=== PATIENT | female | born 1990 | race Caucasian/White ===

== ENCOUNTER 2016-09-19 10:29 | Emergency (ER) | payer OTHER ==
[2016-09-19] MEDS ORDERED: CYCLOBENZAPRINE HCL 10 MG TABLET PO ONE (11:04)
[2016-09-19] MEDS ORDERED: IBUPROFEN 800 MG TABLET PO ONE (11:04)
--- NOTE | 2016-09-19 11:05 | ER Document Report ---
HPI - HPI Patient complains to provider of: cough, rib tenderness Onset: Other - Cough 3 weeks, rib pain 4 days Onset/Duration: Persistent Quality of pain: Sharp Pain Level: 4 Context: Patient states she's had a cough with postnasal drip for the past 2-3 weeks. Patient denies any fever. Patient states she has been using [id number] antihistamine medication as well as saline nasal spray without improvement of her nasal congestion symptoms. Patient reports that when she coughs she has left lower rib tenderness and suspects that she may have pulled a muscle. Patient denies any fever. Patient without any shortness of breath Associated Symptoms: Chest pain - Left rib tenderness with coughing and deep inspiration, Nonproductive cough, Rhinnorhea. denies: Fever, Headache, Shortness of breath, Sore throat Exacerbated by: Coughing, Deep breathing Relieved by: Remaining still Similar symptoms previously: No Recently seen / treated by doctor: No - ROS ROS below otherwise negative: Yes Systems Reviewed and Negative: Yes All other systems reviewed and negative - CONSTITUTIONAL Constitutional: DENIES: Fever, Chills - EENT EENT: REPORTS: Nasal Drainage-Clear, Congestion. DENIES: Sore Throat - NEURO Neurology: DENIES: Headache - CARDIOVASCULAR Cardiovascular: REPORTS: Chest pain - With coughing - RESPIRATORY Respiratory: REPORTS: Coughing. DENIES: Trouble Breathing - GASTROINTESTINAL Gastrointestinal: DENIES: Abdominal Pain, Nausea, Patient vomiting, Diarrhea - REPRODUCTIVE Reproductive: DENIES: : - MUSCULOSKELETAL Musculoskeletal: DENIES: Extremity pain, Back Pain, Neck Pain - DERM Skin Color: Normal, [place] Skin Problems: None Past Medical History - General Information source: Patient - Social History Smoking Status: Current Every Day Smoker - Less than one pack per day Frequency of alcohol use: Occasional Drug Abuse: None Occupation: none Lives with: Family Family History: Reviewed & Not Pertinent, Arthritis, CAD, CVA, DM, Hyperlipidemia, Hypertension, Malignancy Patient has suicidal ideation: No Patient has homicidal ideation: No Neurological Medical History: Reports: Hx Migraine - x 8 years ago. Renal/ Medical History: Reports: Hx Ovarian Cysts. 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 - Immunizations Immunizations up to date: Yes Hx Diphtheria, Pertussis, Tetanus Vaccination: Yes Vertical Provider Document - CONSTITUTIONAL Agree With Documented VS: Yes Exam Limitations: No Limitations General Appearance: WD/WN, No Apparent Distress - INFECTION CONTROL TRAVEL OUTSIDE OF THE [place]. IN LAST 30 DAYS: No - HEENT HEENT: Atraumatic, Normocephalic. negative: Pharyngeal Exudate, Pharyngeal Tenderness, Pharyngeal Erythema, Tympanic Membrane Red, Tympanic Membrane Bulging Notes: Clear rhinorrhea - NECK Neck: Normal Inspection, Supple. negative: Lymphadenopathy-Left, Lymphadenopathy-Right - RESPIRATORY Respiratory: No Respiratory Distress. negative: Chest Non-Tender - Left lower anterior rib tenderness with palpation, tenderness increases with deep inspiration, no subcutaneous tissues emphysema, no ecchymosis, Rales, Rhonchi, Wheezing O2 Sat by Pulse Oximetry: 100 - CARDIOVASCULAR Cardiovascular: Regular Rate, Regular Rhythm, No Murmur - GI/ABDOMEN Gastrointestinal: Abdomen Soft, Abdomen Non-Tender, No Organomegaly - BACK Back: Normal Inspection - MUSCULOSKELETAL/EXTREMETIES Musculoskeletal/Extremeties: MAEW, FROM - NEURO Level of Consciousness: Awake, Alert, Appropriate Motor/Sensory: No Motor Deficit - DERM Integumentary: Warm, Dry, No Rash Course - Vital Signs Vital signs: Temp Pulse Resp BP Pulse Ox 99.2 F 103 H 18 129/90 H 100 09/19/16 10:42 09/19/16 10:42 09/19/16 10:42 09/19/16 10:42 09/19/16 10:42 - Diagnostic Test Radiology reviewed: Image reviewed, Reports reviewed Discharge - Discharge Clinical Impression: Bronchitis, Chest wall pain Condition: Stable Disposition: HOME, SELF-CARE Instructions: Chest Wall Pain ([facility]), Anti-Inflammatory Medication ([facility]), Muscle Relaxers ([facility]), Muscle Strain ([facility]), Warm Packs ([facility]) Additional Instructions: Return immediately for any new or worsening symptoms Followup with your primary care provider, call tomorrow to make a followup appointment Continue to use your uomz-ojx-zdzyhre antihistamine and saline nasal spray to help with congestion You may take Sudafed oiak-bdg-pzymbyf as directed to help with ear congestion symptoms Prescriptions: Hydrocodone Bit/Homatropine [Hycodan Syrup 5-1.5 mg/ 5 ml Ud Cup] 5 ml PO ASDIR PRN #60 ml PRN Reason: Naproxen [Naprosyn 250 Nmg Tablet] 1 tab PO BID #14 tablet Referrals: [facility] [Provider Group] - Follow up as needed
[2016-09-19 12:47] VITALS: BP 111/70
== END 2016-09-19 12:46 | disposition home or self-care (01) ==
LOC: ER 10:29
DX: J40 Bronchitis, not specified as acute or chronic (principal); R07.89 Other chest pain; R07.81 Pleurodynia; F17.210 Nicotine dependence, cigarettes, uncomplicated
CPT/HCPCS: 71020; 99283

== ENCOUNTER 2018-09-30 15:09 | Emergency (ER) | payer SELFPAY ==
--- NOTE | 2018-09-30 16:17 | ER Document Report ---
ED General - General Chief Complaint: Vag Bleeding, +preg <12wks Stated Complaint: VAGINAL BLEEDING WHILE Time Seen by Provider: 09/30/18 16:00 Primary Care Provider: [facility] [Provider Group] - [facility]AL [facility] - Follow up as needed TRAVEL OUTSIDE OF THE U.S. IN LAST 30 DAYS: No - HPI Notes: Patient is a 27-year-old female approximately 5 to 6 weeks who presents to the emergency department complaining of spotting for the past 3 days with occasional cramping. Patient states that she is still eating and drinking without difficulty. She is urinating normally and having normal bowel movement s. She has had one in the past. No other concerns or complaints. Denies any headache, fever, URI, sore throat, chest pain, palpitations, syncope, cough, shortness of breath, wheeze, dyspnea, current abdominal pain, nausea/vomiting/diarrhea, urinary retention, dysuria, hematuria, or rash. - Related Data Allergies/Adverse Reactions: morphine [Morphine] Allergy (Verified 09/30/18 15:15) prednisone [Prednisone] Allergy (Verified 09/30/18 15:15) Past Medical History - Social History Smoking Status: Unknown if Ever Smoked Chew tobacco use (# tins/day): No Frequency of alcohol use: None Drug Abuse: None Family History: Reviewed & Not Pertinent, Arthritis, CAD, CVA, DM, H yperlipidemia, Hypertension, Malignancy Patient has suicidal ideation: No Patient has homicidal ideation: No Neurological Medical History: Reports: Hx Migraine - x 8 years ago. Renal/ Medical History: Reports: Hx Ovarian Cysts. 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 - Immunizations Immunizations up to date: Yes Hx Diphtheria, Pertussis, Tetanus Vaccination: Yes Review of Systems - Review of Systems -: Yes All other systems reviewed and negative Physical Exam - Vital signs Vitals: Temp Pulse Resp BP Pulse Ox 98.5 F 90 18 122/85 98 09/30/18 15:16 09/30/18 15:16 09/30/18 15:16 09/30/18 15:16 09/30/18 15:16 - Notes Notes: PHYSICAL EXAMINATION: GENERAL: Well-appearing, well-nourished and in no acute distress. LUNGS: Breath sounds clear to auscultation bilaterally and equal. No wheezes rales or rhonchi. HEART: Regular rate and rhythm without murmurs, rubs, gallops. ABDOMEN: Soft, nontender, nondistended abdomen. No guarding, no rebound. No masses appreciated. Normal bowel sounds present. No CVA tenderness bilaterally. Musculoskeletal: FROM to passive/active. Strength 5+/5. Extremities: No cyanosis, clubbing, or edema b/l. Peripheral pulses 2+. Capillary refill less than 3 seconds. NEUROLOGICAL: Normal speech, normal gait. PSYCH: Normal mood, normal affect. SKIN: Warm, Dry, normal turgor, no rashes or lesions noted. Course - Re-evaluation Re-evalutation: 09/30/18 Patient is an afebrile, well-hydrated, 27-year-old female who presents to the ED with bleeding in early with concern for possible miscarriage. Vitals are acceptable without any significant tachycardia, tachypnea, or hypoxia. PE is otherwise unremarkable. CBC/UA unremarkable for acute pathology. HCG at 26 (very low). TVUS shows no evidence of at this time. Patient is nontoxic-appearing is tolerating p.o. without any difficulties. Rhogam given for O(-) blood. No other labs or imaging warranted at this time based on H&P. Low suspicion/risk for acute appendicitis, bowel obstruction, acute cholecystitis, acute cholangitis, perforated diverticulitis, incarcerated hernia, pancreatitis, perforated ulcer, peritonitis, sepsis, pelvic inflammatory disease, tubo-ovarian abscess, ovarian torsion, or other systemic emergent condition at this time. Patient is aware that her condition can change from initial presentation and she needs to monitor symptoms closely and seek medical attention if any acute changes. Recheck HCG in 2-3 days, may need repeat US in 7-10 days as well. Conservative measures otherwise for symptoms. Recheck with your PCM/OBGYN in 3-5 days. Return to the ED with any worsening/concerning symptoms otherwise as reviewed in discharge. Patient is in agreement. I did review with the patient the probability that this could be a miscarriage situation that is ongoing or has already been passed. Pt seemed to understand right away after letting her know the hormone level due to multiple previous miscarriages. Close f/u recommended as above with recheck of her lab and return precautions reviewed. - Vital Signs Vital signs: Temp Pulse Resp BP Pulse Ox 98.5 F 90 18 122/85 98 09/30/18 15:16 09/30/18 15:16 09/30/18 15:16 09/30/18 15:16 09/30/18 15:16 - Laboratory Result Diagrams: 09/30/18 16:42 Laboratory results interpreted by me: 09/30/18 09/30/18 09/30/18 16:42 16:42 16:42 Seg Neutrophils % 40.4 L Lymphocytes % 46.9 H Beta HCG, Quant 26.49 H Urine Ascorbic Acid 20 H Discharge - Discharge Clinical Impression: Bleeding in early Condition: Stable Disposition: HOME, SELF-CARE Instructions: Bleeding During Early ([facility]) Additional Instructions: He will need to have your hormone rechecked in 2 to 3 days. You may call 1-2 days after the lab has been drawn to find out your result. It is currently at 26 right now but it should be doubling every 2 to 3 days. You may need another ultrasound performed in 7 to 10 days as well. Maintain fluid intake Proper hygienic technique Keep the skin clean Tylenol/ibuprofen as needed F/u with your PCM/OBGYN in 3-5 days for a recheck Return to the ED with any development of MÉNDEZ/fever, trouble with vision, eye redness, worsening pain, urethral discharge, urinary retention, blood in the urine, flank pain, abdominal pain, n/v, Chest Pain, shortness of breath, joint pains, trouble breathing, or any other worsening/concerning symptoms as needed otherwise. Forms: Follow-Up Laboratory Testing [facility] [NO [facility]AL MD] - Follow up as needed [facility] [Provider Group] - Follow up as needed
[2018-09-30 17:18] LABS: APPEARANCE,URINE CLEAR; BILIRUBIN,URINE NEGATIVE (NEGATIVE); COLOR,URINE YELLOW; GLUCOSE, URINE NEGATIVE (NEGATIVE); KETONES,URINE NEGATIVE (NEGATIVE); LEUKOCYTE ESTERASE,URINE NEGATIVE (NEGATIVE); NITRITE,URINE NEGATIVE (NEGATIVE); PROTEIN,URINE NEGATIVE (NEGATIVE); URINE SPECIFIC GRAVITY 1.009; UROBILINOGEN,URINE NEGATIVE mg/dL (<2.0)
[2018-09-30 17:19] LABS: ABSOLUTE BASOPHILS # (AUTO) 0.1 10^3/uL (0.0-0.2); ABSOLUTE EOSINOPHILS # (AUTO) 0.2 10^3/uL (0.0-0.6); ABSOLUTE LYMPHOCYTES (AUTO) 3.5 10^3/uL (0.5-4.7); ABSOLUTE MONOCYTES (AUTO) 0.6 10^3/uL (0.1-1.4); EOSINOPHILS % (AUTO) 3.1 % (0-6); LYMPHOCYTES % (AUTO) 46.9 % (13-45); MEAN CORPUSCULAR HEMOGLOBIN 30.5 pg (27.0-33.4); MEAN CORPUSCULAR HGB CONC 33.3 g/dL (32.0-36.0); MEAN CORPUSCULAR VOLUME 92 fl (80-97); MONOCYTES % (AUTO) 8.6 % (3-13); PLATELET COUNT 319 10^3/uL (150-450); RED BLOOD COUNT 4.92 10^6/uL (3.72-5.28); RED CELL DISTRIBUTION WIDTH 13.2 % (11.5-14.0); SEGMENTED NEUTROPHILS % (AUTO) 40.4 % (42-78); TOTAL CELLS COUNTED % (AUTO) 100 %; WHITE BLOOD COUNT 7.4 10^3/uL (4.0-10.5)
--- NOTE | 2018-09-30 17:39 | RADIOLOGY REPORT (SQ) ---
EXAM DESCRIPTION: U/S OB TRANSVAG W/DOPPLER COMPLETED DATE/TIME: 09/30/2018 5:28 pm REASON FOR STUDY: preg, bleeding COMPARISON: None. TECHNIQUE: Transvaginal static and realtime grayscale images acquired of the pelvis. Additional zaynab cted spectral and color Doppler images recorded. All images stored on PACs. bHCG: Pending CLINICAL DATES: 6 weeks, 5 days LIMITATIONS: None. FINDINGS: FETUS: No candidate intrauterine gestation identified. UTERUS: No masses. No anomalies. CERVICAL LENGTH: 2.8 cm Closed. RIGHT ADNEXA: Normal ovary with normal vascular flow. No adnexal free fluid. No adnexal masses. LEFT ADNEXA: Normal ovary with normal vascular flow. No adnexal free fluid. No adnexal masses. FREE FLUID: None. OTHER: No other significant finding. IMPRESSION: No candidate intrauterine gestation identified. Correlate with serum beta HCG. Early p regnancy of unknown location; recommend ectopic precautions, serial beta HCG and follow-up ultrasound in 7 to 14 days to ensure viability. TECHNICAL DOCUMENTATION: JOB ID: [id number] [email or web address]- All Rights Reserved rev Reading location - IP/workstation name: [email or web address]
[2018-09-30 20:46] VITALS: BP 129/93
== END 2018-09-30 21:00 | disposition home or self-care (01) ==
LOC: ER 15:09
DX: O20.9 Hemorrhage in early pregnancy, unspecified (principal); Z3A.01 Less than 8 weeks gestation of pregnancy; Z88.6 Allergy status to analgesic agent
CPT/HCPCS: 99284; 96372; 86900; 86901; 36415; 86850; 84702; 85025; 81001; 76817; 93976; J2790

== ENCOUNTER 2018-11-20 08:48 | Emergency (ER) | payer MEDICAID ==
--- NOTE | 2018-11-20 09:44 | ER Document Report ---
ED Medical Screen (RME) - General Chief Complaint: OB Problem (<20wks) Stated Complaint: VAGINAL BLEEDING Time Seen by Provider: 11/20/18 09:33 Mode of Arrival: Ambulatory Information source: Patient Notes: This 28-year-old female presents to the emergency department today with complaints that she is started vaginal bleeding this morning. Reports she obtained confirmation for the from the health department yesterday. Reports she is G7, P2. She reports she just had a miscarriage at the early part of September. She reports she is not bleeding that heavily no clots but she is having abdominal cramping. Denies fever denies trauma. I have greeted and performed a rapid initial assessment of this patient. A comprehensive ED assessment and evaluation of the patient, analysis of test results and completion of the medical decision making process will be conducted by additional ED providers. Dictation of this chart was performed using voice recognition software; therefor e, there may be some unintended grammatical errors. TRAVEL OUTSIDE OF THE U.[place]. IN LAST 30 DAYS: No - Related Data Allergies/Adverse Reactions: morphine [Morphine] Allergy (Verified 11/20/18 08:48) prednisone [Prednisone] Allergy (Verified 11/20/18 08:48) Past Medical History - General Last Menstrual Period: 10/01/18 - Social History Chew tobacco use (# tins/day): No Frequency of alcohol use: None Drug Abuse: None Neurological Medical History: Reports: Hx Migraine - x 8 years ago. Renal/ Medical History: Reports: Hx Ovarian Cysts. 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 - Immunizations Immunizations up to date: Yes Hx Diphtheria, Pertussis, Tetanus Vaccination: Yes Physical Exam - Vital signs Vitals: Temp Pulse Resp BP Pulse Ox 97.9 F 73 18 122/68 100 11/20/18 08:51 11/20/18 08:51 11/20/18 08:51 11/20/18 08:51 11/20/18 08:51 Course - Vital Signs Vital signs: Temp Pulse Resp BP Pulse Ox 97.9 F 73 18 122/68 100 11/20/18 08:51 11/20/18 08:51 11/20/18 08:51 11/20/18 08:51 11/20/18 08:51
[2018-11-20 10:01] LABS: ABSOLUTE BASOPHILS # (AUTO) 0.1 10^3/uL (0.0-0.2); ABSOLUTE EOSINOPHILS # (AUTO) 0.2 10^3/uL (0.0-0.6); ABSOLUTE LYMPHOCYTES (AUTO) 2.7 10^3/uL (0.5-4.7); ABSOLUTE MONOCYTES (AUTO) 0.5 10^3/uL (0.1-1.4); ABSOLUTE NEUT (AUTO) 4.2 10^3/uL (1.7-8.2); BASOPHILS % (AUTO) 0.8 % (0-2); EOSINOPHILS % (AUTO) 2.4 % (0-6); HEMATOCRIT 42.3 % (36.0-47.0); MEAN CORPUSCULAR HEMOGLOBIN 30.7 pg (27.0-33.4); MEAN CORPUSCULAR HGB CONC 33.1 g/dL (32.0-36.0); MEAN CORPUSCULAR VOLUME 93 fl (80-97); MONOCYTES % (AUTO) 6.1 % (3-13); PLATELET COUNT 279 10^3/uL (150-450); RED BLOOD COUNT 4.56 10^6/uL (3.72-5.28); RED CELL DISTRIBUTION WIDTH 12.9 % (11.5-14.0); SEGMENTED NEUTROPHILS % (AUTO) 55.7 % (42-78); TOTAL CELLS COUNTED % (AUTO) 100 %; WHITE BLOOD COUNT 7.6 10^3/uL (4.0-10.5)
[2018-11-20 10:27] LABS: ALANINE AMINOTRANSFERASE 20 U/L (9-52); ALBUMIN 4.2 g/dL (3.5-5.0); ALKALINE PHOSPHATASE 46 U/L (38-126); ANION GAP 7 (5-19); ASPARTATE AMINO TRANSFERASE 18 U/L (14-36); BILIRUBIN,DIRECT 0.2 mg/dL (0.0-0.4); BILIRUBIN,TOTAL 0.4 mg/dL (0.2-1.3); BLOOD UREA NITROGEN 7 mg/dL (7-20); CARBON DIOXIDE 28 mmol/L (22-30); CHLORIDE 106 mmol/L (98-107); GLUCOSE 120 mg/dL (75-110); SODIUM 141.3 mmol/L (137-145)
[2018-11-20 10:45] LABS: APPEARANCE,URINE CLEAR; BILIRUBIN,URINE NEGATIVE (NEGATIVE); COLOR,URINE STRAW; GLUCOSE, URINE NEGATIVE (NEGATIVE); KETONES,URINE NEGATIVE (NEGATIVE); LEUKOCYTE ESTERASE,URINE NEGATIVE (NEGATIVE); NITRITE,URINE NEGATIVE (NEGATIVE); PROTEIN,URINE NEGATIVE (NEGATIVE); URINE SPECIFIC GRAVITY 1.002; UROBILINOGEN,URINE NEGATIVE mg/dL (<2.0)
--- NOTE | 2018-11-20 10:49 | ER Document Report ---
ED GI/ - General Chief Complaint: OB Problem (<20wks) Stated Complaint: VAGINAL BLEEDING Time Seen by Provider: 11/20/18 09:33 Primary Care Provider: EUGENIO SANCHEZ MD [ACTIVE STAFF] - Follow up as needed Mode of Arrival: Ambulatory Information source: Patient Notes: Patient is a 28-year-old G7, P2 female presented to the emergency department with chief complaint of vaginal bleeding during . Patient reports that she had a miscarriage on 10/01/2018. She states that her bleeding had resolved and then she started having symptoms of such as breast tenderness and nausea. She states she took another test which was positive at home. She reports this follow-up morning she woke up with vaginal bleeding, has not passed any clots. She does report she is Rh-. She has not had any nausea, vomiting or diarrhea. She reports mild lower abdominal cramping. She reports the bleeding is very mild only soaking through one pad this morning and as of now it is almost 11 AM. She denies any past medical history. TRAVEL OUTSIDE OF THE [place] IN LAST 30 DAYS: No - Related Data Allergies/Adverse Reactions: morphine [Morphine] Allergy (Verified 11/20/18 08:48) prednisone [Prednisone] Allergy (Verified 11/20/18 08:48) Past Medical History - General Information source: Patient Last Menstrual Period: 10/01/18 - Social History Smoking Status: Never Smoker Chew tobacco use (# tins/day): No Frequency of alcohol use: None Drug Abuse: None Family History: Reviewed & Not Pertinent, Arthritis, CAD, CVA, DM, Hyperlipidemia, Hypertension, Malignancy Patient has suicidal ideation: No Patient has homicidal ideation: No Neurological Medical History: Reports: Hx Migraine - x 8 years ago. Renal/ Medical History: Reports: Hx Ovarian Cysts. 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 - Immunizations Immunizations up to date: Yes Hx Diphtheria, Pertussis, Tetanus Vaccination: Yes Review of Systems - Review of Systems Constitutional: No symptoms reported EENT: No symptoms reported Cardiovascular: No symptoms reported Respiratory: No symptoms reported Gastrointestinal: No symptoms reported Genitourinary: No symptoms reported Female Genitourinary: See HPI Musculoskeletal: No symptoms reported Skin: No symptoms reported Hematologic/Lymphatic: No symptoms reported Neurological/Psychological: No symptoms reported Physical Exam - Vital signs Vitals: Temp Pulse Resp BP Pulse Ox 97.9 F 73 18 122/68 100 11/20/18 08:51 11/20/18 08:51 11/20/18 08:51 11/20/18 08:51 11/20/18 08:51 - Notes Notes: PHYSICAL EXAMINATION: GENERAL: Well-appearing, well-nourished and in no acute distress. HEAD: Atraumatic, normocephalic. EYES: Pupils equal round and reactive to light, extraocular movements intact, conjunctiva are normal. ENT: Nares patent, oropharynx clear without exudates. Moist mucous membranes. NECK: Normal range of motion, supple without lymphadenopathy LUNGS: Breath sounds clear to auscultation bilaterally and equal. No wheezes rales or rhonchi. HEART: Regular rate and rhythm without murmurs ABDOMEN: Soft, nontender, nondistended abdomen. No guarding, no rebound. No masses appreciated. Female : deferred Musculoskeletal: Normal range of motion, no pitting or edema. No cyanosis. NEUROLOGICAL: Cranial nerves grossly intact. Normal speech, normal gait. Normal sensory, motor exams PSYCH: Normal mood, normal affect. SKIN: Warm, Dry, normal turgor, no rashes or lesions noted. Course - Re-evaluation Re-evalutation: Laboratory 11/20/18 11/20/18 11/20/18 09:52 09:52 09:52 WBC 7.6 RBC 4.56 Hgb 14.0 Hct 42.3 MCV 93 MCH 30.7 MCHC 33.1 RDW 12.9 Plt Count 279 Seg Neutrophils % 55.7 Lymphocytes % 35.0 Monocytes % 6.1 Eosinophils % 2.4 Basophils % 0.8 Absolute Neutrophils 4.2 Absolute Lymphocytes 2.7 Absolute Monocytes 0.5 Absolute Eosinophils 0.2 Absolute Basophils 0.1 Sodium 141.3 Potassium 4.0 Chloride 106 Carbon Dioxide 28 Anion Gap 7 BUN 7 Creatinine 0.52 Est GFR ( Amer) > 60 Est GFR (Non-Af Amer) > 60 Glucose 120 H Calcium 9.0 Total Bilirubin 0.4 Direct Bilirubin 0.2 Neonat Total Bilirubin Not Reportable Neonat Direct Bilirubin Not Reportable Neonat Indirect Bili Not Reportable AST 18 ALT 20 Alkaline Phosphatase 46 Total Protein 7.0 Albumin 4.2 Beta HCG, Quant 285.12 H Total Beta HCG POSITIVE Urine Color Urine Appearance Urine pH Ur Specific [place] Urine Protein Urine Glucose (UA) Urine Ketones Urine Blood Urine Nitrite Urine Bilirubin Urine Urobilinogen Ur Leukocyte Esterase Urine WBC (Auto) Urine RBC (Auto) Urine Bacteria (Auto) Squamous Epi Cells Auto Urine Ascorbic Acid Blood Type O NEGATIVE Antibody Screen POSITIVE Antibody Identification RHOGAM INDUCED ANTI-D Rhogam Indicated RHOGAM REQUESTED 11/20/18 10:30 WBC RBC Hgb Hct MCV MCH MCHC RDW Plt Count Seg Neutrophils % Lymphocytes % Monocytes % Eosinophils % Basophils % Absolute Neutrophils Absolute Lymphocytes Absolute Monocytes Absolute Eosinophils Absolute Basophils Sodium Potassium Chloride Carbon Dioxide Anion Gap BUN Creatinine Est GFR ( Amer) Est GFR (Non-Af Amer) Glucose Calcium Total Bilirubin Direct Bilirubin Neonat Total Bilirubin Neonat Direct Bilirubin Neonat Indirect Bili AST ALT Alkaline Phosphatase Total Protein Albumin Beta HCG, Quant Total Beta HCG Urine Color STRAW Urine Appearance CLEAR Urine pH 9.0 Ur Specific [place] 1.002 Urine Protein NEGATIVE Urine Glucose (UA) NEGATIVE Urine Ketones NEGATIVE Urine Blood LARGE H Urine Nitrite NEGATIVE Urine Bilirubin NEGATIVE Urine Urobilinogen NEGATIVE Ur Leukocyte Esterase NEGATIVE Urine WBC (Auto) 0 Urine RBC (Auto) 0 Urine Bacteria (Auto) TRACE Squamous Epi Cells Auto 2 Urine Ascorbic Acid NEGATIVE Blood Type Antibody Screen Antibody Identification Rhogam Indicated Obstetrics Ultrasound 11/20/18 09:41 IMPRESSION: NO VISUALIZED INTRA- OR EXTRAUTERINE , WHICH IS NOT UNEXPECTED FOR REPORTED BETA HCG LEVEL ECTOPIC CANNOT BE EXCLUDED. FOLLOW-UP ULTRASOUND AND SERIAL BHCG LEVELS STRONGLY RECOMMENDED TO ACCURATELY ASSESS STATUS. Patient given rhogam injection. Will return in 2 days for repeat HCG and US if not able to see OBGYN. ED return precautions discussed. The patient's emergency department workup and current diagnosis were explained to the patient and or family. Follow-up instructions were provided. Medications if prescribed were discussed. Instructions for when to return to the emergency department including specific worrisome symptoms were discussed with the patient and/or family. - Vital Signs Vital signs: Temp Pulse Resp BP Pulse Ox 97.9 F 64 16 108/53 L 100 11/20/18 08:51 11/20/18 13:06 11/20/18 13:06 11/20/18 13:06 07/16/19 13:06 - Laboratory Result Diagrams: 11/20/18 09:52 11/20/18 09:52 Laboratory results interpreted by me: 11/20/18 11/20/18 09:52 10:30 Glucose 120 H Beta HCG, Quant 285.12 H Urine Blood LARGE H Discharge - Discharge Clinical Impression: Vaginal bleeding, Elevated serum hCG Rh negative status during Qualifiers: Trimester: unspecified trimester Qualified Code(s): O26.899 - Other specified related conditions, unspecified trimester Disposition: HOME, SELF-CARE Additional Instructions: You were seen in the emergency department today with concern for and vaginal bleeding. Your beta hCG levels are very low at 250. A copy of this was given to you. The transvaginal ultrasound does not reveal any intrauterine . At this time an ectopic cannot be completely excluded. I would like you to return in 48 hours for repeat quantitative hCG testing and ultrasound. Return sooner if you develop worsening pain, fever or any other symptom that is concerning to you. If you are able to follow-up with [facility] during that timeframe you can also follow up with them so long as it is within the next 48 hours, if not to come back to the emergency room and check in as a patient. Referrals: EUGENIO SANCHEZ MD [ACTIVE STAFF] - Follow up as needed
--- NOTE | 2018-11-20 11:14 | RADIOLOGY REPORT (SQ) ---
EXAM DESCRIPTION: U/S OB TRANSVAGINAL W/O DOP COMPLETED DATE/TIME: 11/20/2018 10:21 am REASON FOR STUDY: preg vag bleed COMPARISON: None. TECHNIQUE: Transvaginal static and realtime grayscale images acquired of the pelvis. Additional zaynab cted spectral and color Doppler images recorded. All images stored on PACs. CLINICAL AGE: LMP 10/01/2018, JYOTI 07/27/2019, EGA 7 weeks 1 day [facility].12 LIMITATIONS: None. FINDINGS: UTERUS: No visualized intrauterine . Uterus measures 8.1 x 4.6 x 4.8 cm. RIGHT ADNEXA: Ovary measures 3.1 x 1.8 x 2.6 cm. There is a complex cyst measuring up to 1.5 cm with internal septations. No adnexal masses. LEFT ADNEXA: Ovary measures 2.8 x 2.1 x 2.1 cm. No adnexal masses. FREE FLUID: Trace fluid within the pelvis. OTHER: The cervix measures 3.0 cm. IMPRESSION: NO VISUALIZED INTRA- OR EXTRAUTERINE , WHICH IS NOT UNEXPECTED FOR REPORTED BE TA HCG LEVEL ECTOPIC CANNOT BE EXCLUDED. FOLLOW-UP ULTRASOUND AND SERIAL BHCG LEVELS STRONGLY RECOMMENDED TO ACCURATELY ASSESS STATU S. TECHNICAL DOCUMENTATION: JOB ID: [id number] [email or web address]- All Rights Reserved Reading location - IP/workstation name: [email or web address]
[2018-11-20 13:08] VITALS: BP 108/53
== END 2018-11-20 13:24 | disposition home or self-care (01) ==
LOC: ER 08:48
DX: O46.91 Antepartum hemorrhage, unspecified, first trimester (principal); O36.0910 Maternal care for other rhesus isoimmunization, first trimester, not applicable or unspecified; O26.891 Other specified pregnancy related conditions, first trimester; R10.30 Lower abdominal pain, unspecified; O92.29 Other disorders of breast associated with pregnancy and the puerperium; Z3A.01 Less than 8 weeks gestation of pregnancy; Z88.5 Allergy status to narcotic agent; Z88.8 Allergy status to other drugs, medicaments and biological substances
CPT/HCPCS: 99284; 86900; 86901; 36415; 86870; 86850; 84702; 85025; 80053; 81001; 76817; J2790

== ENCOUNTER 2018-11-23 09:20 | Emergency (ER) | payer MEDICAID ==
[2018-11-23 09:30] VITALS: BP 126/94
--- NOTE | 2018-11-23 10:10 | ER Document Report ---
ED Medical Screen (RME) - General Chief Complaint: Vaginal Bleeding Stated Complaint: ABDOMINAL PAIN Time Seen by Provider: 11/23/18 10:04 TRAVEL OUTSIDE OF THE [place] IN LAST 30 DAYS: No - HPI Notes: 11/23/18 10:09 Patient is a G7, P2 28-year-old female with "early " who presents complaining of having heavy vaginal bleeding on Monday and continued bleeding since then. Patient was evaluated at that time and did have a positive beta hCG although it was in the 200s. She had an unremarkable ultrasound. Patient was told to either follow-up with HIM CLERK or return here for repeat ultrasound and blood work. Patient states that HIM CLERK cannot get her in so she is here for repeat testing. She has no other concerns or complaints. She is eating and drinking without difficulty. She is urinating normally. Denies MÉNDEZ, fever, neck pain, URI, CP, SOB, Abd pain, dysuria, back pain, or rash. I have treated and performed a rapid initial assessment of this patient. A comprehensive ED assessment and evaluation of the patient, analysis of test results and completion of medical decision making process will be conducted by additional ED providers. PHYSICAL EXAMINATION: GENERAL: Well-appearing, well-nourished and in no acute distress. A&Ox4. Answers questions appropriately. LUNGS: Breath sounds clear to auscultation bilaterally and equal. No wheezes rales or rhonchi. HEART: Regular rate and rhythm without murmurs, rubs, gallops. ABDOMEN: Soft, nondistended abdomen. No guarding, no rebound. Normal bowel sounds present. No CVA tenderness bilaterally. Grossly nontender (cannot el icit thorough abd exam w/o bed, however). - Related Data Allergies/Adverse Reactions: morphine [Morphine] Allergy (Verified 11/23/18 09:26) prednisone [Prednisone] Allergy (Verified 11/23/18 09:26) Past Medical History Neurological Medical History: Reports: Hx Migraine - x 8 years ago. Renal/ Medical History: Reports: Hx Ovarian Cysts. 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 - Immunizations Immunizations up to date: Yes Hx Diphtheria, Pertussis, Tetanus Vaccination: Yes Physical Exam - Vital signs Vitals: Temp Pulse Resp BP Pulse Ox 98.6 F 81 18 126/94 H 100 11/23/18 09:29 11/23/18 09:29 11/23/18 09:29 11/23/18 09:11/23/18 09:29 Course - Vital Signs Vital signs: Temp Pulse Resp BP Pulse Ox 98.6 F 81 18 126/94 H 100 11/23/18 09:29 11/23/18 09:29 11/23/18 09:29 11/23/18 09:29 11/23/18 09:29
[2018-11-23 10:28] LABS: ABSOLUTE BASOPHILS # (AUTO) 0.1 10^3/uL (0.0-0.2); ABSOLUTE EOSINOPHILS # (AUTO) 0.2 10^3/uL (0.0-0.6); ABSOLUTE LYMPHOCYTES (AUTO) 3.3 10^3/uL (0.5-4.7); ABSOLUTE MONOCYTES (AUTO) 0.6 10^3/uL (0.1-1.4); ABSOLUTE NEUT (AUTO) 3.4 10^3/uL (1.7-8.2); BASOPHILS % (AUTO) 1.2 % (0-2); HEMATOCRIT 45.6 % (36.0-47.0); HEMOGLOBIN 15.2 g/dL (12.0-15.5); LYMPHOCYTES % (AUTO) 43.8 % (13-45); MEAN CORPUSCULAR HEMOGLOBIN 30.6 pg (27.0-33.4); MEAN CORPUSCULAR HGB CONC 33.4 g/dL (32.0-36.0); MEAN CORPUSCULAR VOLUME 92 fl (80-97); MONOCYTES % (AUTO) 7.5 % (3-13); PLATELET COUNT 322 10^3/uL (150-450); RED BLOOD COUNT 4.98 10^6/uL (3.72-5.28); SEGMENTED NEUTROPHILS % (AUTO) 44.5 % (42-78); TOTAL CELLS COUNTED % (AUTO) 100 %; WHITE BLOOD COUNT 7.6 10^3/uL (4.0-10.5)
[2018-11-23 10:34] LABS: APPEARANCE,URINE SLIGHTLY-CLOUDY; BILIRUBIN,URINE NEGATIVE (NEGATIVE); COLOR,URINE STRAW; GLUCOSE, URINE NEGATIVE (NEGATIVE); KETONES,URINE NEGATIVE (NEGATIVE); LEUKOCYTE ESTERASE,URINE NEGATIVE (NEGATIVE); NITRITE,URINE NEGATIVE (NEGATIVE); PROTEIN,URINE NEGATIVE (NEGATIVE); URINE SPECIFIC GRAVITY 1.004; UROBILINOGEN,URINE NEGATIVE mg/dL (<2.0)
--- NOTE | 2018-11-23 11:34 | RADIOLOGY REPORT (SQ) ---
EXAM DESCRIPTION: U/S OB TRANSVAGINAL W/O DOP COMPLETED DATE/TIME: 11/23/2018 10:44 am REASON FOR STUDY: + preg, bleeding COMPARISON: 11/20/2018 TECHNIQUE: Transvaginal static and realtime grayscale images acquired of the pelvis. Additional zaynab cted spectral and color Doppler images recorded. All images stored on PACs. b[facility] CLINICAL DATES: 7 weeks, 4 days LIMITATIONS: None. FINDINGS: No candidate intrauterine gestation identified. UTERUS: No masses. No anomalies. CERVICAL LENGTH: 2.8 cm Closed. RIGHT ADNEXA: Normal ovary with normal vascular flow. No adnexal free fluid. No adnexal masses. LEFT ADNEXA: Not visualized. No adnexal free fluid. No adnexal masses. FREE FLUID: None. OTHER: No other significant finding. IMPRESSION: 1. No candidate intrauterine gestation identified. Early of uncertain locati on. Recommend ectopic precautions, clinical follow-up, serial beta HCG, and follow-up ultrasound in 7 to 14 days to ensure continued development and viability. 2. No evidence of ectopic although ectopic is not excluded. The left ovary and adnexa are not clearly visualized. Within this limitation, no evidence of mass. Trimester of : First - 0 to 13 weeks. TECHNICAL DOCUMENTATION: JOB ID: [id number] [employer]- All Rights Reserved rev-09/22 Reading location - IP/workstation name: [email or web address]
--- NOTE | 2018-11-23 15:32 | ER Document Report ---
Entered by CORIN CAPUTO SCRIBE 11/23/18 1130 Acting as scribe for:SUMAYA MARTINEZ DO ED General - General Chief Complaint: Vaginal Bleeding Stated Complaint: ABDOMINAL PAIN Time Seen by Provider: 11/23/18 10:04 Notes: Patient is a 28-year-old female presenting to the emergency department complaining of vaginal bleeding. Patient states that this bleeding has been occurring since Monday. Patient states that she had a miscarriage in September 2018. Patient is currently a G7, . Patient recently had a positive test, came to the emergency department and was told she might be having a miscarriage versus an early ectopic. Patient could not follow-up as an outpatient so she came here to have repeat quantitative hCG testing as well as repeat ultrasound. Denies bleeding through more than 1-2 pads per hour, states her bleeding is consistent with her usual. And complains of mild cramping lower abdominal pain. Received RhoGam last visit. TRAVEL OUTSIDE OF THE [place] IN LAST 30 DAYS: No - Related Data Allergies/Adverse Reactions: morphine [Morphine] Allergy (Verified 11/23/18 09:26) prednisone [Prednisone] Allergy (Verified 11/23/18 09:26) Past Medical History - General Information source: Patient - Social History Smoking Status: Current Some Day Smoker - Quit smoking, started again, states that she plans to quit very soon. Cigarette use (# per day): Yes Chew tobacco use (# tins/day): No Frequency of alcohol use: Occasional Drug Abuse: None Family History: Reviewed & Not Pertinent, Arthritis, CAD, CVA, DM, Hyperlipidemia, Hypertension, Malignancy Patient has suicidal ideation: No Patient has homicidal ideation: No Neurological Medical History: Reports: Hx Migraine - x 8 years ago. Renal/ Medical History: Reports: Hx Ovarian Cysts Musculoskeletal Medical History: Reports Hx Musculoskeletal Trauma Psychiatric Medical History: Reports: Hx Depression Traumatic Medical History: Reports: Hx Fractures Past Surgical History: Reports: Hx Orthopedic Surgery - Bilateral lower extremi ties secondary to Genu Valgum condition. - Immunizations Immunizations up to date: Yes Hx Diphtheria, Pertussis, Tetanus Vaccination: Yes Review of Systems - Review of Systems Constitutional: No symptoms reported EENT: No symptoms reported Cardiovascular: No symptoms reported Respiratory: No symptoms reported Gastrointestinal: No symptoms reported Genitourinary: No symptoms reported Female Genitourinary: See HPI, Vaginal bleeding Musculoskeletal: No symptoms reported Skin: No symptoms reported Hematologic/Lymphatic: No symptoms reported Neurological/Psychological: No symptoms reported -: Yes All other systems reviewed and negative Physical Exam - Vital signs Vitals: Temp Pulse Resp BP Pulse Ox 98.6 F 81 18 126/94 H 100 11/23/18 09:29 11/23/18 09:29 11/23/18 09:29 11/23/18 09:29 11/23/18 09:29 - Notes Notes: PHYSICAL EXAM GENERAL: Alert, interacts well. No acute distress. HEAD: Normocephalic, atraumatic. EYES: Pupils equal, round, and reactive to light. Extraocular movements intact. ENT: Oral mucosa moist, tongue midline. NECK: Full range of motion. Supple. Trachea midline. LUNGS: Clear to auscultation bilaterally, no wheezes, rales, or rhonchi. No respiratory distress. HEART: Regular rate and rhythm. No murmurs, gallops, or rubs. ABDOMEN: Suprapubic tenderness to palpation. Bowel sounds present in all 4 quadrants. No guarding, rigidity, or rebound. EXTREMITIES: Moves all 4 extremities spontaneously. No edema, radial and dorsalis pedis pulses 2/4 bilaterally. No cyanosis. NEUROLOGICAL: Alert and oriented x3. Normal speech. Biceps and patellar DTRs 2+ bilaterally. PSYCH: Normal affect, normal mood. SKIN: Warm, dry, normal turgor. No rashes or lesions noted. Course - Re-evaluation Re-evalutation: 11/23/18 11:31 CBC unremarkable, quantitative beta-hCG significantly decreased at 46.1, urinalysis shows large blood but no signs of infection. Patient already has a follow-up appointment with OB to discuss her recurrent miscarriages. Received RhoGam on her last visit. Patient is ready for discharge home. - Vital Signs Vital signs: Temp Pulse Resp BP Pulse Ox 98.6 F 81 18 126/94 H 100 11/23/18 09:29 11/23/18 09:29 11/23/18 09:29 11/23/18 09:29 11/23/18 09:29 - Laboratory Result Diagrams: 11/23/18 10:12 Laboratory results interpreted by me: 11/23/18 11/23/18 10:12 10:12 Beta HCG, Quant 46.91 H Urine Blood LARGE H Discharge - Discharge Clinical Impression: Miscarriage, History of recurrent miscarriages Condition: Stable Disposition: HOME, SELF-CARE Additional Instructions: Miscarriage You have had a miscarriage (medically called a "spontaneous "). The miscarriage occurred because the fetus did not develop normally. There is nothing you did to cause it, and nothing you could have done to prevent it. About one in four ends in miscarriage. You should rest in bed for two or three days. As there is some risk of infection of the uterus, you should not have intercourse for one week (or until okayed by your physician). You might not have a period for six to eight weeks. You should not become again for at least three months -- the uterus requires time to get back to normal. Call the doctor or return for re-examination if there is heavy or persistent vaginal bleeding, fever, foul discharge, continued cramping pains, or abdominal pain. I personally performed the services described in the documentation, reviewed and edited the documentation which was dictated to the scribe in my presence, and it accurately records my words and actions.
== END 2018-11-23 11:41 | disposition home or self-care (01) ==
LOC: ER 09:20
DX: O03.9 Complete or unspecified spontaneous abortion without complication (principal); R10.30 Lower abdominal pain, unspecified; F17.210 Nicotine dependence, cigarettes, uncomplicated; Z88.5 Allergy status to narcotic agent; Z88.8 Allergy status to other drugs, medicaments and biological substances
CPT/HCPCS: 36415; 76817; 81001; 84702; 85025; 99284

== ENCOUNTER 2019-03-17 17:48 | Emergency (ER) | payer MEDICAID ==
--- NOTE | 2019-03-17 18:35 | ER Document Report ---
ED Medical Screen (RME) - General Chief Complaint: Vag Bleeding, +preg <12wks Stated Complaint: VAGINAL BLEEDING Time Seen by Provider: 03/17/19 18:31 Mode of Arrival: Ambulatory Information source: Patient Notes: Patient is presently 9 weeks G8, P2. Patient reports cramping for the past 4 days with spotting that started today. Patient denies any urinary symptoms. I have greeted and performed a rapid initial assessment of this patient. A comprehensive ED assessment and evaluation of the patient, analysis of test results and completion of the medical decision making process will be conducted by additional ED providers. TRAVEL OUTSIDE OF THE [place] IN LAST 30 DAYS: No - Related Data Allergies/Adverse Reactions: morphine [Morphine] Allergy (Verified 11/23/18 09:26) prednisone [Prednisone] Allergy (Verified 11/23/18 09:26) Past Medical History Neurological Medical History: Reports: Hx Migraine - x 8 years ago. Renal/ Medical History: Reports: Hx Ovarian Cysts. 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 - Immunizations Immunizations up to date: Yes Hx Diphtheria, Pertussis, Tetanus Vaccination: Yes Physical Exam - Vital signs Vitals: Temp Pulse Resp BP Pulse Ox 98.8 F 78 16 133/82 H 99 03/17/19 18:16 03/17/19 18:16 03/17/19 18:16 03/17/19 18:16 03/17/19 18:16 - Abdominal Tenderness: Tender - Lower pelvic Course - Vital Signs Vital signs: Temp Pulse Resp BP Pulse Ox 98.8 F 78 16 133/82 H 99 03/17/19 18:16 03/17/19 18:16 03/17/19 18:16 03/17/19 18:16 03/17/19 18:16
[2019-03-17 19:14] LABS: ABSOLUTE BASOPHILS # (AUTO) 0.1 10^3/uL (0.0-0.2); ABSOLUTE EOSINOPHILS # (AUTO) 0.2 10^3/uL (0.0-0.6); ABSOLUTE MONOCYTES (AUTO) 0.7 10^3/uL (0.1-1.4); ABSOLUTE NEUT (AUTO) 5.1 10^3/uL (1.7-8.2); BASOPHILS % (AUTO) 0.9 % (0-2); EOSINOPHILS % (AUTO) 1.7 % (0-6); HEMOGLOBIN 14.8 g/dL (12.0-15.5); LYMPHOCYTES % (AUTO) 39.5 % (13-45); MEAN CORPUSCULAR HEMOGLOBIN 31.6 pg (27.0-33.4); MEAN CORPUSCULAR HGB CONC 34.5 g/dL (32.0-36.0); MEAN CORPUSCULAR VOLUME 92 fl (80-97); MONOCYTES % (AUTO) 7.2 % (3-13); PLATELET COUNT 301 10^3/uL (150-450); RED CELL DISTRIBUTION WIDTH 12.8 % (11.5-14.0); SEGMENTED NEUTROPHILS % (AUTO) 50.7 % (42-78); TOTAL CELLS COUNTED % (AUTO) 100 %; WHITE BLOOD COUNT 10.1 10^3/uL (4.0-10.5)
[2019-03-17 19:18] LABS: APPEARANCE,URINE SLIGHTLY-CLOUDY; BILIRUBIN,URINE NEGATIVE (NEGATIVE); COLOR,URINE YELLOW; GLUCOSE, URINE NEGATIVE (NEGATIVE); KETONES,URINE NEGATIVE (NEGATIVE); PROTEIN,URINE NEGATIVE (NEGATIVE); URINE SPECIFIC GRAVITY 1.006; UROBILINOGEN,URINE NEGATIVE mg/dL (<2.0)
[2019-03-17 19:42] LABS: ANION GAP 12 (5-19); BLOOD UREA NITROGEN 9 mg/dL (7-20); CALCIUM 9.9 mg/dL (8.4-10.2); CARBON DIOXIDE 25 mmol/L (22-30); CHLORIDE 104 mmol/L (98-107); GLUCOSE 90 mg/dL (75-110)
--- NOTE | 2019-03-17 21:16 | RADIOLOGY REPORT (SQ) ---
US PELVIS EXAM DATE: 03/17/2019 6:34 PM REPROGRAPHICS ASSOCIATE HISTORY: Early . Pelvic pain. COMPARISON: None. TECHNIQUE: Grayscale, color Doppler, and spectral Doppler ultrasound images of the pelvis were obtained. FINDINGS: There is an intrauterine gestational sac with a yolk sac and pole visualized. The crown-rump length measures 2.3 cm corresponding to 9 weeks 0 days. heart rate is 168 bpm. There is an adjacent 2 cm subchorionic hematoma. Both ovaries are normal in size and contain normal follicles, with the right ovary measuring 2.8 cm, and the left ovary measuring 5.1 cm. There is a 3.2 cm left ovarian simple cyst. IMPRESSION: 1. Single live IUP with estimated gestational age 9 weeks 0 days. 2. Small adjacent subchorionic hemorrhage; attention on follow-up imaging is suggested.
[2019-03-17 22:08] VITALS: BP 122/75
--- NOTE | 2019-03-17 22:08 | ER Document Report ---
ED GI/ - General Chief Complaint: Vag Bleeding, +preg <12wks Stated Complaint: VAGINAL BLEEDING Time Seen by Provider: 03/17/19 18:31 Mode of Arrival: Ambulatory Notes: Patient is presently 9 weeks G8, P2. Patient reports cramping for the past 4 days with spotting that started today. Patient denies any urinary symptoms. TRAVEL OUTSIDE OF THE [place] IN LAST 30 DAYS: No - Related Data Allergies/Adverse Reactions: morphine [Morphine] Allergy (Verified 11/23/18 09:26) prednisone [Prednisone] Allergy (Verified 11/23/18 09:26) Past Medical History - General Information source: Patient - Social History Smoking Status: Never Smoker Family History: Reviewed & Not Pertinent, Arthritis, CAD, CVA, DM, Hype rlipidemia, Hypertension, Malignancy Patient has suicidal ideation: No Patient has homicidal ideation: No Neurological Medical History: Reports: Hx Migraine - x 8 years ago. Renal/ Medical History: Reports: Hx Ovarian Cysts. Denies: Hx Peritoneal Dialysis Musculoskeletal Medical History: Reports Hx Musculoskeletal Trauma Psychiatric Medical History: Reports: Hx Depression Traumatic Medical History: Reports: Hx Fractures Past Surgical History: Reports: Hx Orthopedic Surgery - Bilateral lower e xtremities secondary to Genu Valgum condition. - Immunizations Immunizations up to date: Yes Hx Diphtheria, Pertussis, Tetanus Vaccination: Yes Review of Systems - Review of Systems Constitutional: No symptoms reported EENT: No symptoms reported Cardiovascular: No symptoms reported Respiratory: No symptoms reported Gastrointestinal: No symptoms reported Genitourinary: No symptoms reported Female Genitourinary: Vaginal bleeding Musculoskeletal: No symptoms reported Skin: No symptoms reported Hematologic/Lymphatic: No symptoms reported Neurological/Psychological: No symptoms reported Physical Exam - Vital signs Vitals: Temp Pulse Resp BP Pulse Ox 98.8 F 78 16 133/82 H 99 03/17/19 18:16 03/17/19 18:16 03/17/19 18:16 03/17/19 18:16 03/17/19 18:16 - Notes Notes: PHYSICAL EXAMINATION: GENERAL: Well-appearing, well-nourished and in no acute distress. HEAD: Atraumatic, normocephalic. EYES: Pupils equal round and reactive to light, extraocular movements intact, conjunctiva are normal. ENT: Nares patent, oropharynx clear without exudates. Moist mucous membranes. NECK: Normal range of motion, supple without lymphadenopathy LUNGS: Breath sounds clear to auscultation bilaterally and equal. No wheezes rales or rhonchi. HEART: Regular rate and rhythm without murmurs ABDOMEN: Soft, nontender, nondistended abdomen. No guarding, no rebound. No masses appreciated. Female : No CVA tenderness Musculoskeletal: Normal range of motion, no pitting or edema. No cyanosis. NEUROLOGICAL: Cranial nerves grossly intact. Normal speech, normal gait. Normal sensory, motor exams PSYCH: Normal mood, normal affect. SKIN: Warm, Dry, normal turgor, no rashes or lesions noted. Course - Re-evaluation Re-evalutation: Laboratory 03/17/19 03/17/19 03/17/19 19:00 19:00 19:00 WBC 10.1 RBC 4.70 Hgb 14.8 Hct 43.0 MCV 92 MCH 31.6 MCHC 34.5 RDW 12.8 Plt Count 301 Lymph % (Auto) 39.5 [place] % (Auto) 7.2 Eos % (Auto) 1.7 Baso % (Auto) 0.9 Absolute Neuts (auto) 5.1 Absolute Lymphs (auto) 4.0 Absolute Monos (auto) 0.7 Absolute Eos (auto) 0.2 Absolute Basos (auto) 0.1 Seg Neutrophils % 50.7 Sodium 140.9 Potassium 4.0 Chloride 104 Carbon Dioxide 25 Anion Gap 12 BUN 9 Creatinine 0.46 L Est GFR ( Amer) > 60 Est GFR (MDRD) Non-Af > 60 Glucose 90 Calcium 9.9 Beta HCG, Quant 109043.00 H Total Beta HCG POSITIVE Urine Color Urine Appearance Urine pH Ur Specific [place] Urine Protein Urine Glucose (UA) Urine Ketones Urine Blood Urine Nitrite (Reflex) Urine Bilirubin Urine Urobilinogen Leukocyte Esterase Rfl Urine RBC (Auto) Urine WBC (Reflex) Squamous Epi Cells Auto Urine Ascorbic Acid Blood Type O NEGATIVE Antibody Screen NEGATIVE Rhogam Indicated RHOGAM REQUESTED 03/17/19 19:00 WBC RBC Hgb Hct MCV MCH MCHC RDW Plt Count Lymph % (Auto) [place] % (Auto) Eos % (Auto) Baso % (Auto) Absolute Neuts (auto) Absolute Lymphs (auto) Absolute Monos (auto) Absolute Eos (auto) Absolute Basos (auto) Seg Neutrophils % Sodium Potassium Chloride Carbon Dioxide Anion Gap BUN Creatinine Est GFR ( Amer) Est GFR (MDRD) Non-Af Glucose Calcium Beta HCG, Quant Total Beta HCG Urine Color YELLOW Urine Appearance SLIGHTLY-CLOUDY Urine pH 6.0 Ur Specific [place] 1.006 Urine Protein NEGATIVE Urine Glucose (UA) NEGATIVE Urine Ketones NEGATIVE Urine Blood NEGATIVE Urine Nitrite (Reflex) NEGATIVE Urine Bilirubin NEGATIVE Urine Urobilinogen NEGATIVE Leukocyte Esterase Rfl NEGATIVE Urine RBC (Auto) 0 Urine WBC (Reflex) 1 Squamous Epi Cells Auto 2 Urine Ascorbic Acid NEGATIVE Blood Type Antibody Screen Rhogam Indicated Obstetrics Ultrasound 03/17/19 18:34 IMPRESSION: 1. Single live IUP with estimated gestational age 9 weeks 0 days. 2. Small adjacent subchorionic hemorrhage; attention on follow-up imaging is suggested. Patient given RhoGam injection that she is Rh-. Patient with no active bleeding at this time. Ultrasound report as outlined above. Small subchorionic hemorrhage noted. Patient will follow-up with [facility] AD[facility]IST[facility] for repeat ultrasound and repeat hCG. Patient given ED return precautions, patient verbalizes un derstanding and agreement with same. - Vital Signs Vital signs: Temp Pulse Resp BP Pulse Ox 98.2 F 64 16 122/75 99 03/17/19 22:07 03/17/19 22:07 03/17/19 22:07 03/17/19 22:07 03/17/19 22:07 - Laboratory Result Diagrams: 03/17/19 19:00 03/17/19 19:00 Laboratory results interpreted by me: 03/17/19 19:00 Creatinine 0.46 L Beta HCG, Quant 732418.00 H Discharge - Discharge Clinical Impression: Vaginal bleeding during Condition: Stable Disposition: HOME, SELF-CARE Additional Instructions: Bleeding During Early You have been evaluated for passing blood while . While we take this symptom very seriously, most women with your degree of bleeding will go on to have a perfectly normal baby. At this time, there is no indication that a miscarriage will occur. (A miscarriage occurs when the fetus is abnormal. There is no medicine or treatment to prevent it.) A more serious cause of bleeding is tubal . An ultrasound can show whether the is in the uterus or in the tube. Sometimes in early , no fetus is seen. In this case, careful follow-up, including repeat blood tests and repeat ultrasound, is necessary. You should rest in bed until the symptoms have resolved. Do not douche or have sex for at least a week, or until OK'd by the doctor. Don't use tampons. Call the doctor or return for re-examination if there is an increase in bleeding or cramping, extreme weakness, fainting, new abdominal pain, fever, or passage of tissue. Please call to schedule an appointment with the health department this week.
== END 2019-03-17 22:15 | disposition home or self-care (01) ==
LOC: ER 17:48
DX: O20.8 Other hemorrhage in early pregnancy (principal); O36.0910 Maternal care for other rhesus isoimmunization, first trimester, not applicable or unspecified; Z3A.09 9 weeks gestation of pregnancy; Z88.5 Allergy status to narcotic agent; Z88.8 Allergy status to other drugs, medicaments and biological substances
CPT/HCPCS: 86900; 86901; 36415; 86850; 84702; 85025; 80048; 81001; 76817; J2790

== ENCOUNTER 2019-04-17 12:41 | Emergency (ER) | payer MEDICAID ==
--- NOTE | 2019-04-17 13:46 | ER Document Report ---
ED Medical Screen (RME) - General Chief Complaint: Vag Bleeding, +preg <12wks Stated Complaint: ABDOMINAL PAIN Time Seen by Provider: 04/17/19 13:37 Mode of Arrival: Ambulatory Information source: Patient Notes: 28-year-old female presents to ED for complaint of passing blood clots today. She is 13 weeks 2 days . She is having cramping. She states it was a large blood clot. She states she is O- blood type. She is 8 para 2. She has had multiple miscarriages within the last year. She states she is not sure of the date that she got her last RhoGam but she knows she did get it recently. Patient is alert oriented respirations regular nonlabored speaking in full sentences walks with a even steady gait. I have greeted and performed a rapid initial assessment of this patient. A comprehensive ED assessment and evaluation of the patient, analysis of test results and completion of medical decision making process will be conducted by an additional ED providers. TRAVEL OUTSIDE OF THE [place] IN LAST 30 DAYS: No - Related Data Allergies/Adverse Reactions: morphine [Morphine] Allergy (Verified 11/23/18 09:26) prednisone [Prednisone] Allergy (Verified 11/23/18 09:26) Past Medical History Neurological Medical History: Reports: Hx Migraine - x 8 years ago. Renal/ Medical History: Reports: Hx Ovarian Cysts. 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 - Immunizations Immunizations up to date: Yes Hx Diphtheria, Pertussis, Tetanus Vaccination: Yes Physical Exam - Vital signs Vitals: Temp Pulse Resp BP Pulse Ox 98.1 F 94 16 118/82 97 04/17/19 13:25 04/17/19 13:25 04/17/19 13:25 04/17/19 13:25 04/17/19 13:25 Course - Vital Signs Vital signs: Temp Pulse Resp BP Pulse Ox 98.1 F 94 16 118/82 97 04/17/19 13:36 04/17/19 13:25 04/17/19 13:36 04/17/19 13:25 04/17/19 13:36
[2019-04-17 14:26] LABS: APPEARANCE,URINE CLEAR; BILIRUBIN,URINE NEGATIVE (NEGATIVE); COLOR,URINE STRAW; GLUCOSE, URINE NEGATIVE (NEGATIVE); KETONES,URINE 20 mg/dL (NEGATIVE); PROTEIN,URINE NEGATIVE (NEGATIVE); URINE SPECIFIC GRAVITY 1.003; UROBILINOGEN,URINE NEGATIVE mg/dL (<2.0)
[2019-04-17 14:44] LABS: ALBUMIN 4.3 g/dL (3.5-5.0); ALKALINE PHOSPHATASE 50 U/L (38-126); ANION GAP 13 (5-19); ASPARTATE AMINO TRANSFERASE 19 U/L (14-36); BILIRUBIN,DIRECT 0.1 mg/dL (0.0-0.4); BILIRUBIN,TOTAL 0.4 mg/dL (0.2-1.3); BLOOD UREA NITROGEN 6 mg/dL (7-20); CALCIUM 9.4 mg/dL (8.4-10.2); CARBON DIOXIDE 25 mmol/L (22-30); CHLORIDE 100 mmol/L (98-107); GLUCOSE 89 mg/dL (75-110); POTASSIUM 3.8 mmol/L (3.6-5.0); TOTAL PROTEIN 7.2 g/dL (6.3-8.2)
--- NOTE | 2019-04-17 14:46 | RADIOLOGY REPORT (SQ) ---
EXAM DESCRIPTION: U/S 1TRIMESTER/1GEST W/DOPPLER COMPLETED DATE/TIME: 04/17/2019 2:22 pm REASON FOR STUDY: cramping passing blood clot COMPARISON: Ultrasound from 03/17/2019. TECHNIQUE: Transabdominal static and realtime grayscale images acquired of the pelvis. Additional se lected spectral and color Doppler images recorded. All images stored on PACs. bHCG: Pending. CLINICAL DATES: LMP 01/14/2019. 13 weeks 2 days. LIMITATIONS: None. FINDINGS: FETUS: Single Living intrauterine . ULTRASOUND EGA: 13 weeks 3 days. ULTRASOUND JYOTI: 10/20/2019. CRL: 7.4 cm. FHR: 150 beats per minute. SURVEY: Too early to assess. AMNIOTIC FLUID: Too early to assess. PLACENTA: Too early to assess. SUBCHORIONIC BLEED: No. UTERUS: The uterus measures 10.4 x 8 8.1 x 10.9 cm. CERVICAL LENGTH: 2.9 cm. Closed. RIGHT ADNEXA: The right ovary measures 2.8 x 1.2 x 2.5 cm and on Doppler there is intact arterial inf low within the ovarian stroma. There is no adnexal mass. LEFT ADNEXA: The left ovary measures 2.4 x 2 x 2.2 cm and on Doppler there is intact arterial inflow within the ovarian stroma. There is a cystic lesion in the left ovary that measures 1.3 x 1.1 x 1 cm . FREE FLUID: None. OTHER: No other finding. IMPRESSION: LIVE INTRAUTERINE . EGA 13 weeks 2 days based on the LMP. Trimester of : First trimester - 0 to 13 weeks. TECHNICAL DOCUMENTATION: JOB ID: [id number] [employer]- All Rights Reserved rev Reading location - IP/workstation name: [email or web address]
--- NOTE | 2019-04-17 15:12 | ER Document Report ---
ED General - General Chief Complaint: Vag Bleeding, +preg <12wks Stated Complaint: ABDOMINAL PAIN Time Seen by Provider: 04/17/19 13:37 Mode of Arrival: Ambulatory Information source: Patient Notes: 28-year-old female presents to the emergency department G8, P2 approximately 13 weeks 2 days . She reports she passed a quarter size blood clot today. Reports she is had no further bleeding. She reports she has not had any other symptoms such as abdominal pain fever vomiting diarrhea. Denies trauma. Denies pain with void. Reports she had 2 recent miscarriages one in November the next in March. She received RhoGam both times. She also reports she just saw the health clinic and is scheduled to see no in over May 14. She reports she is chosen to go to [facility] because she would like a vaginal and she is been told [facility] does not do VBACs. TRAVEL OUTSIDE OF THE [place] IN LAST 30 DAYS: No - HPI Onset: This morning Onset/Duration: Sudden Quality of pain: No pain Associated symptoms: None Exacerbated by: Denies Relieved by: Denies Similar symptoms previously: No Recently seen / treated by doctor: No - Related Data Allergies/Adverse Reactions: morphine [Morphine] Allergy (Verified 11/23/18 09:26) prednisone [Prednisone] Allergy (Verified 11/23/18 09:26) Past Medical History - General Information source: Patient Last Menstrual Period: 01/16/19 - Social History Smoking Status: Unknown if Ever Smoked Cigarette use (# per day): No Frequency of alcohol use: None Drug Abuse: None Lives with: Family Family History: Reviewed & Not Pertinent, Arthritis, CAD, CVA, DM, Hyperlipidemia, Hypertension, Malignancy Patient has suicidal ideation: No Patient has homicidal ideation: No Neurological Medical History: Reports: Hx Migraine - x 8 years ago. Renal/ Medical History: Reports: Hx Ovarian Cysts. 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 - Immunizations Immunizations up to date: Yes Hx Diphtheria, Pertussis, Tetanus Vaccination: Yes Review of Systems - Review of Systems Notes: Review HPI for review of systems., All other systems negative Physical Exam - Vital signs Vitals: Temp Pulse Resp BP Pulse Ox 98.1 F 94 16 118/82 97 04/17/19 13:25 04/17/19 13:25 04/17/19 13:25 04/17/19 13:25 04/17/19 13:25 - Notes Notes: PHYSICAL EXAMINATION: GENERAL: Well-appearing and in no acute distress HEAD: Atraumatic, normocephalic. EYES: Pupils equal round and reactive to light, extraocular movements intact, sclera anicteric, conjunctiva are normal. ENT: nares patent, oropharynx clear without exudates. Moist mucous membranes. NECK: Normal range of motion, supple without lymphadenopathy LUNGS: CTAB and equal. No wheezes rales or rhonchi. HEART: Regular rate and rhythm without murmurs ABDOMEN: Soft, no tenderness. No guarding, no rebound BACK: denies pain EXTREMITIES: Normal range of motion, no pitting edema. NEUROLOGICAL: Cranial nerves grossly intact. Normal sensory/motor exams. PSYCH: Normal mood, normal affect. SKIN: Warm, Dry, normal turgor, no rashes or lesions noted Course - Re-evaluation Re-evalutation: 04/17/19 15:57 28-year-old female approximately 13 weeks G8, P2 presents today after passing a quarter size clot. She denies further bleeding at this time. Denies all other symptoms such as abdominal pain fever vomiting diarrhea denies pain with void. Reports she feels fine now. Patient is O-. Patient has received RhoGam twice this year once in November and once in March. Ultrasound shows 13 weeks 2 days no subchorionic bleed I contacted Dr. dunne for the [facility] on-call. Instructed her updated her on patient and RhoGam. She reports patients can never get enough RhoGam. Patient was instructed on RhoGam. Patient was also instructed on the importance of follow-up. She verbalized understand all instructions. Obstetrics Ultrasound 04/17/19 13:43 IMPRESSION: LIVE INTRAUTERINE . EGA 13 weeks 2 days based on the LMP. Trimester of : First trimester - 0 to 13 weeks. 04/17/19 14:00 04/17/19 14:00 MCV 89 fl (80-97) 04/17/19 14:00 MCH 31.0 pg (27.0-33.4) 04/17/19 14:00 MCHC 34.8 g/dL (32.0-36.0) 04/17/19 14:00 RDW 12.4 % (11.5-14.0) 04/17/19 14:00 Seg Neutrophils % 57.5 % (42-78) 04/17/19 14:00 Chloride 100 mmol/L (98-107) 04/17/19 14:00 Carbon Dioxide 25 mmol/L (22-30) 04/17/19 14:00 Anion Gap 13 (5-19) 04/17/19 14:00 Est GFR ( Amer) > 60 (>60) 04/17/19 14:00 Glucose 89 mg/dL (75-110) 04/17/19 14:00 Calcium 9.4 mg/dL (8.4-10.2) 04/17/19 14:00 Total Bilirubin 0.4 mg/dL (0.2-1.3) 04/17/19 14:00 AST 19 U/L (14-36) 04/17/19 14:00 Alkaline Phosphatase 50 U/L (38-126) 04/17/19 14:00 Total Protein 7.2 g/dL (6.3-8.2) 04/17/19 14:00 Albumin 4.3 g/dL (3.5-5.0) 04/17/19 14:00 Urine Color STRAW 04/17/19 13:50 Urine Appearance CLEAR 04/17/19 13:50 Urine pH 6.0 (5.0-9.0) 04/17/19 13:50 Ur Specific [place] 1.003 04/17/19 13:50 Urine Protein NEGATIVE mg/dL (NEGATIVE) 04/17/19 13:50 Urine Glucose (UA) NEGATIVE mg/dL (NEGATIVE) 04/17/19 13:50 Urine Ketones 20 mg/dL (NEGATIVE) H 04/17/19 13:50 Urine Blood NEGATIVE (NEGATIVE) 04/17/19 13:50 Blood Type O NEGATIVE 04/17/19 14:00 04/17/19 15:59 - Vital Signs Vital signs: Temp Pulse Resp BP Pulse Ox 98.1 F 94 16 118/82 97 04/17/19 13:36 04/17/19 13:25 04/17/19 13:36 04/17/19 13:25 04/17/19 13:36 - Laboratory Result Diagrams: 04/17/19 14:00 04/17/19 14:00 Laboratory results interpreted by me: 04/17/19 04/17/19 13:50 14:00 BUN 6 L Creatinine 0.47 L Beta HCG, Quant [id number] H Urine Ketones 20 H - Diagnostic Test Radiology reviewed: Image reviewed, Reports reviewed Discharge - Discharge Clinical Impression: Vaginal bleeding Qualifiers: Weeks of gestation: 13 weeks Qualified Code(s): Z3A.13 - 13 weeks gestation of Condition: Stable Disposition: HOME, SELF-CARE Instructions: Bleeding During Early ([facility]), Ob-Mental Health Program Manager Doctors, [facility], ([facility]), Rhogam ([facility]) Additional Instructions: *You have been evaluated for vaginal bleeding, *Your blood type is O-. You have received RhoGam. *The ultrasound shows that you are 13 weeks 2 days with a single intrauterine *Follow up with your [facility]IT[facility] or the health department for recheck within 1 week *Avoid sexual intercourse until follow up Monitor your bleeding, return to the emergency department for heavy bleeding abdominal pain concerns *Return to ED for worsening condition, changes, needs
[2019-04-17 15:24] LABS: ABSOLUTE BASOPHILS # (AUTO) 0.1 10^3/uL (0.0-0.2); ABSOLUTE EOSINOPHILS # (AUTO) 0.1 10^3/uL (0.0-0.6); ABSOLUTE LYMPHOCYTES (AUTO) 3.2 10^3/uL (0.5-4.7); ABSOLUTE MONOCYTES (AUTO) 0.5 10^3/uL (0.1-1.4); ABSOLUTE NEUT (AUTO) 5.3 10^3/uL (1.7-8.2); BASOPHILS % (AUTO) 0.7 % (0-2); EOSINOPHILS % (AUTO) 1.5 % (0-6); HEMATOCRIT 42.7 % (36.0-47.0); HEMOGLOBIN 14.9 g/dL (12.0-15.5); LYMPHOCYTES % (AUTO) 35.1 % (13-45); MEAN CORPUSCULAR HGB CONC 34.8 g/dL (32.0-36.0); MEAN CORPUSCULAR VOLUME 89 fl (80-97); MONOCYTES % (AUTO) 5.2 % (3-13); PLATELET COUNT 298 10^3/uL (150-450); RED BLOOD COUNT 4.79 10^6/uL (3.72-5.28); RED CELL DISTRIBUTION WIDTH 12.4 % (11.5-14.0); SEGMENTED NEUTROPHILS % (AUTO) 57.5 % (42-78); TOTAL CELLS COUNTED % (AUTO) 100 %; WHITE BLOOD COUNT 9.1 10^3/uL (4.0-10.5)
[2019-04-17 19:11] VITALS: BP 113/68
== END 2019-04-17 19:10 | disposition home or self-care (01) ==
LOC: ER 12:41
DX: O20.9 Hemorrhage in early pregnancy, unspecified (principal); Z3A.13 13 weeks gestation of pregnancy; Z88.6 Allergy status to analgesic agent
CPT/HCPCS: 36415; 76801; 80053; 81001; 84702; 85025; 86850; 86870; 86900; 86901; 93976; 99284; J2790